=== PATIENT | male | born 1995 | race Caucasian/White ===

== ENCOUNTER 2017-08-27 01:20 | Emergency (ER) | payer OTHER, SELFPAY ==
[2017-08-27 01:31] VITALS: BP 145/84; PULSE 85; RESP 20; TEMP 36.9; O2SAT 96; BMI 27.5
--- NOTE | 2017-08-27 02:29 | HMH.EDGENADL ---
ED Disposition Clinical Impression: Corneal foreign body Qualifiers: Encounter type: initial encounter Laterality: right Qualified Code(s): T15.01XA - Foreign body in cornea, right eye, initial encounter Disposition: Home, Self-Care Condition on Discharge: Good Instructions: DI for Corneal Foreign Body-Eye Additional Instructions: Use erythromycin ointment 4 times a day in right eye. Ibuprofen for pain. Additional instructions for EYE PAIN or INJURY: Follow up with an community association manager as soon as possible. Return to the emergency department if severe pain, loss of vision, pus drainage, severe swelling or redness of eyelids. Referrals: Pedro Martinez MD [Staff Physician] - (Call today, to be seen in the office today or Tuesday.) - Critical Care Critical Care Time: No Attestation: On 08/27/17, the high probability of a clinically significant, sudden or life threatening deterioration of the following system(s) required my full and direct attention, intervention and personal management. The time I documented below is in addition to time spent performing reported procedures but includes the following listed in this critical care notation. Medical Decision Making - Keegan Inquiry Pt receiving controlled substance: No Vital Signs: 08/27/17 01:31 08/27/17 02:42 Temperature 98.5 F 98.7 F Temperature Source Oral Pulse Rate 78 Pulse Rate [Right Radial] 85 Respiratory Rate 20 20 Blood Pressure 121/70 Blood Pressure [Right Arm] 145/84 Blood Pressure Mean [Right Arm] 104 Blood Pressure Position Sitting 02 Sat by Pulse Oximetry 96 Oxygen Delivery Method Room Air Orders (Tests/Meds): ED MEDICATIONS Generic Name Dose Route Start Last Admin Trade Name Freq PRN Reason Stop Dose Admin Erythromycin 0.25 gm 08/27/17 09:00 Erythromycin 3.5gm Opth Oinment OP 09/26/17 08:59 QID SAHSHANK General Adult HPI - General Chief complaint: Eye Problems Stated complaint: AO 08/26/17 17:00 FB in right eye Time Seen by Provider: 08/27/17 02:15 Mode of Arrival: Ambulatory Limitations: No Limitations Description of Symptoms (Recalled from ER Triage Doc. by RN): pt got wood chips in right eye at approx 5 pm yesterday - History of Present Illness HPI narrative: The patient says he was using a chainsaw cutting wood yesterday when he got something in his right eye. He is able to see it when looking in the mirror. He has eye discomfort, which has improved since the injury. Vision is slightly blurry. He does not wear glasses or contact lenses. - Related Data Home Medications Medication Instructions Recorded Confirmed No Known Home Medications [No 08/27/17 08/27/17 Known Home Medications] Allergies Allergy/AdvReac Type Severity Reaction Status Date / Time No Known Allergies Allergy Verified 08/27/17 01:35 [facility] History I have reviewed the patient's past medical history: Yes Medical History: Denies:: Cancer, Diabetes Mellitus Type 1, Diabetes Mellitus Type 2, MRSA Laterality Cases: Bilateral: Myringotomy (Ear Tubes), Tonsillectomy Amputation: No Fractures: No - Social History Smoking Status: Current every day smoker Alcohol Intake: never - Psychiatric History Expresses thoughts of harming self/others: None Suicide Plan Description: No Plan ROS Obtained: Yes Systems reviewed as appropriate & no additional complaints - Eyes Eyes: Reports blurry vision, Reports eye pain Physical Exam - General General appearance: alert, in no apparent distress - Expanded Eye Exam Eyelids: bilateral: normal inspection (Right lids everted, no additional foreign bodies) Pupils: Bilateral: regular, round Sclera/Conjunctival: right: injection Comment: White 1 mm nonmetallic foreign body at the 5 o'clock position on the right cornea. Fluorescein staining performed with magnification. The only uptake is at the site of the foreign body. Anterior chamber normal. No signs of ocu
--- NOTE | 2017-08-27 02:32 | ED_ITS ---
ED Disposition Clinical Impression: Corneal foreign body Qualifiers: Encounter type: initial encounter Laterality: right Qualified Code(s): T15.01XA - Foreign body in cornea, right eye, initial encounter Disposition: Home, Self-Care Condition on Discharge: Good Instructions: DI for Corneal Foreign Body-Eye Additional Instructions: Use erythromycin ointment 4 times a day in right eye. Ibuprofen for pain. Additional instructions for EYE PAIN or INJURY: Follow up with an bingo usher as soon as possible. Return to the emergency department if severe pain, loss of vision, pus drainage, severe swelling or redness of eyelids. Referrals: Pedro Martinez MD [Staff Physician] - (Call today, to be seen in the office today or Tuesday.) - Critical Care Critical Care Time: No Attestation: On 08/27/17, the high probability of a clinically significant, sudden or life threatening deterioration of the following system(s) required my full and direct attention, intervention and personal management. The time I documented below is in addition to time spent performing reported procedures but includes the following listed in this critical care notation. Medical Decision Making - Keegan Inquiry Pt receiving controlled substance: No Vital Signs: 08/27/17 01:31 08/27/17 02:42 Temperature 98.5 F 98.7 F Temperature Source Oral Pulse Rate 78 Pulse Rate [Right Radial] 85 Respiratory Rate 20 20 Blood Pressure 121/70 Blood Pressure [Right Arm] 145/84 Blood Pressure Mean [Right Arm] 104 Blood Pressure Position Sitting 02 Sat by Pulse Oximetry 96 Oxygen Delivery Method Room Air Orders (Tests/Meds): ED MEDICATIONS Generic Name Dose Route Start Last Admin Trade Name Freq PRN Reason Stop Dose Admin Erythromycin 0.25 gm 08/27/17 09:00 Erythromycin 3.5gm Opth Oinment OP 09/26/17 08:59 QID SHASHANK General Adult HPI - General Chief complaint: Eye Problems Stated complaint: AO 08/26/17 17:00 FB in right eye Time Seen by Provider: 08/27/17 02:15 Mode of Arrival: Ambulatory Limitations: No Limitations Description of Symptoms (Recalled from ER Triage Doc. by RN): pt got wood chips in right eye at approx 5 pm yesterday - History of Present Illness HPI narrative: The patient says he was using a chainsaw cutting wood yesterday when he got something in his right eye. He is able to see it when looking in the mirror. He has eye discomfort, which has improved since the injury. Vision is slightly blurry. He does not wear glasses or contact lenses. - Related Data Home Medications Medication Instructions Recorded Confirmed No Known Home Medications [No 08/27/17 08/27/17 Known Home Medications] Allergies Allergy/AdvReac Type Severity Reaction Status Date / Time No Known Allergies Allergy Verified 08/27/17 01:35 [facility] History I have reviewed the patient's past medical history: Yes Medical History: Denies:: Cancer, Diabetes Mellitus Type 1, Diabetes Mellitus Type 2, MRSA Laterality Cases: Bilateral: Myringotomy (Ear Tubes), Tonsillectomy Amputation: No Fractures: No - Social History Smoking Status: Current every day smoker Alcohol Intake: never - Psychiatric History Expresses thoughts of harming self/others: None Suicide Plan
--- NOTE | 2017-08-27 02:41 | PC.NURSE ---
VISUAL ACUITY DONE. BOTH -20/20, RIGHT 20/70, LEFT 20/40. DR ROJO NOTIFIED.
[2017-08-27 02:42] VITALS: BP 121/70; PULSE 78; RESP 20; TEMP 37.1; O2SAT 99
== END 2017-08-27 02:42 | disposition home or self-care (01) ==
PROVIDERS: Emergency Provider Emergency Medicine
DX: T15.01XA Foreign body in cornea, right eye, initial encounter (principal)
CPT/HCPCS: 65220; 99281